=== PATIENT | female | born 1985 | race Hispanic/Latino ===

== ENCOUNTER 2020-10-10 16:38 | Emergency (ER) | payer BC ==
[2020-10-10] MEDS ORDERED: IBUPROFEN 600 MG TABLET ONE (18:36)
[2020-10-10 18:55] LABS: APPEARANCE,URINE Clear (CLEAR); BILIRUBIN,URINE Negative (NEGATIVE); COLOR,URINE Yellow (YELLOW); GLUCOSE, URINE (UA) Negative (NEGATIVE); KETONES,URINE Negative (NEGATIVE); LEUKOCYTE ESTERASE ,URINE Negative (NEGATIVE); NITRATE,URINE Negative (NEGATIVE); OCCULT BLOOD,URINE Negative (NEGATIVE); PROTEIN,URINE Negative (NEGATIVE); UROBILINOGEN,URINE 0.2 mg/dL (0.2-1.0)
[2020-10-10 19:04] LABS: HCG,QUAL RESULT NEGATIVE (NEGATIVE)
== END 2020-10-10 19:36 | disposition home or self-care (01) ==
LOC: EDH 16:38
DX: R07.89 Other chest pain (principal); R42 Dizziness and giddiness; R10.9 Unspecified abdominal pain
CPT/HCPCS: 81003; 81025